=== PATIENT | male | born 2000 | race African-American/Black ===

== ENCOUNTER 2019-09-18 18:47 | Emergency (ER) | payer MEDICAID ==
[~2019-09-18] VITALS: Ht 188 cm; Wt 81.6 kg
[2019-09-18 19:10] VITALS: BP 118/68
--- NOTE | 2019-09-18 19:10 | NUR ---
ED Nurse Note: Pt walked into ED from home for c/o sore throat and cough with clear sputum production x 6 days. Pt is breathing normally, NAD. Pt tried home remedies without any relief. Pt is aaox4, no fever.
--- NOTE | 2019-09-18 19:48 | Emergency Room Report ---
History of Present Illness General Chief Complaint: Sore Throat Source: Patient Present Illness HPI Patient presents with 3 days of increased sore throat. He is tried salt water gargles and they have not helped. He has pain with swallowing. The pain is increased at night. He reports the pain 8/10. He is felt feverish but does not document temperature. Denies any nausea, vomiting or diarrhea. His voice has not changed. He denies productive cough. He denies joint pain or rashes. There is been a minimal headache. Allergies: Coded Allergies: No Known Allergies (Unverified , 09/18/19) COVID-19 Screening Contact w/high risk pt: No Recent Travel to affected area: No Experienced COVID-19 symptoms?: No COVID-19 Testing performed VETERINARY MANAGER: No Patient History Past Medical History: see triage record Social History: Denies: smoking Social History Narrative From home Reviewed Nursing Documentation: PMH: Agreed; PSxH: Agreed Nursing Documentation-PMH Hx Asthma: Yes - childhood Review of Systems Constitutional: Reports: see HPI Eye: Denies: eye pain ENT: Reports: see HPI Respiratory: Reports: see HPI Cardiovascular: Denies: chest pain Gastrointestinal: Reports: see HPI Musculoskeletal: Reports: see HPI Skin: Reports: see HPI Neurological: Reports: see HPI Physical Exam Vital Signs Date Time Temp Pulse Resp B/P (MAP) Pulse Ox O2 Delivery O2 Flow Rate FiO2 09/18/19 19:03 98.4 62 18 118/68 (85) 96 Room Air Sp02 EP Interpretation: reviewed, normal General Appearance: well appearing, no apparent distress, GCS 15 Head: normocephalic Eyes: bilateral eye normal inspection, bilateral eye PERRL ENT: no angioedema, TMs + canals normal, pharyngeal erythema, tonsillar exudate Neck: full range of motion, supple Respiratory: normal inspection Cardiovascular #1: regular rate, rhythm Cardiovascular #2: 2+ radial (R) Gastrointestinal: normal inspection Musculoskeletal: gait/station normal Neurologic: alert, grossly normal Psychiatric: mood/affect normal Skin: normal color, no rash, warm/dry Medical Decision Making Diagnostic Impression: Primary Impression: Strep pharyngitis ER Course Patient presents with sore throat. Differential includes strep, viral, COVID- 19 amongst others. There is no evidence of peritonsillar abscess. There are exudates which is highly suggestive of strep infection. The patient has minimal systemic symptoms. Antibiotics are indicated as well as prednisone. Because the patient's pain is 8/10 7 minutes were also administered. COVID-19 very unlikely based on physical findings. Discussed findings with patient and treatment plan. Patient stable for outpatient observation and treatment. Last Vital Signs Date Time Temp Pulse Resp B/P (MAP) Pulse Ox O2 Delivery O2 Flow Rate FiO2 09/18/19 20:00 98.4 65 18 120/75 98 Room Air Status: improved Disposition: HOME, SELF-CARE Condition: Improved Scripts Diphenhydramine Hcl* (BENADRYL*) 25 Mg Capsule 25 MG ORAL QHS PRN for Itching, #10 CAP Prov: Catrachito Null MD 09/18/19 Lidocaine HCl 2% Viscous (Lidocaine HCl 2% Viscous) 100 Ml Solution 10 ML ORAL QID PRN for throat pain, #60 ML Prov: Catrachito Null MD 09/18/19 Amoxicillin* (AMOXIL*) 500 Mg Capsule 500 MG ORAL THREE TIMES A DAY, #21 CAP Prov: Catrachito Null MD 09/18/19 Referrals: [facility] (PCP) Catrachito Null MD Sep 18, 2019 19:48
[2019-09-18] MEDS ORDERED: AMOXICILLIN500 MG ORAL (19:50)
[2019-09-18] MEDS ORDERED: BENADRYL25 MG ORAL (19:50)
[2019-09-18] MEDS ORDERED: LIDOCAINE VISC100 ML ORAL (19:50)
--- NOTE | 2019-09-18 19:55 | NUR ---
ED Nurse Note: RN removed 1- 250mg capsule of amoxicillin and accidentally closed lid without pulling 2nd capsule to total 500mg dose ordered. Override 1-250mg capsule in pyxis. 1 capsule dropped on floor and contaminated, had to override 1 more 250mg capsule of amoxicillin in pyxis, totalling 2 override in pyxis.
[2019-09-18 20:00] VITALS: BP 120/75
--- NOTE | 2019-09-18 20:00 | NUR ---
ER DISCHARGE NOTE: Patient is cleared to be discharged per ERMD, pt is aox4, on room air, with stable vital signs. pt was given dc and prescription instructions, pt was able to verbalize understanding, pt id band removed. pt is able to ambulate with steady gait. pt took all belongings.
== END 2019-09-18 20:00 | disposition home or self-care (01) ==
LOC: EMR 19:25
DX: J02.0 Streptococcal pharyngitis (principal)
CPT/HCPCS: J7512; Z7502; 99282